=== PATIENT | male | born 1995 | race Caucasian/White ===

== ENCOUNTER 2016-07-19 14:45 | Emergency (ER) | payer MEDICAID ==
[2016-07-19] MEDS ORDERED: CEFTRIAXONE 500 MG VIAL ONE (15:47)
[2016-07-19] MEDS ORDERED: AZITHROMYCIN 250 MG TAB ONE (15:47)
[2016-07-19] MEDS ORDERED: LIDOCAINE 1% MDV 20 ML ONE (15:48)
== END 2016-07-19 16:52 | disposition home or self-care (01) ==
LOC: ER 14:45
DX: A64 Unspecified sexually transmitted disease (principal)
CPT/HCPCS: 81001; 87088; 87491; 87591; 96372